=== PATIENT | female | born 1990 | race Two or more races ===

== ENCOUNTER 2024-09-04 10:52 | Outpatient (CLI) | payer OTHER | END 2024-09-04 11:00 | disposition home or self-care (01) | LOC: PRENATAL 10:52 | DX: O44.00 Complete placenta previa NOS or without hemorrhage, unspecified trimester (principal); O28.1 Abnormal biochemical finding on antenatal screening of mother; O09.519 Supervision of elderly primigravida, unspecified trimester; O34.10 Maternal care for benign tumor of corpus uteri, unspecified trimester; Z3A.22 22 weeks gestation of pregnancy ==

== ENCOUNTER 2024-10-30 10:04 | Outpatient (CLI) | payer OTHER | END 2024-10-30 10:05 | disposition home or self-care (01) | LOC: PRENATAL 10:04 | PROVIDERS: ATTEND Obstetrics & Gynecology Maternal & Fetal Medicine | DX: O26.849 Uterine size-date discrepancy, unspecified trimester (principal); O28.1 Abnormal biochemical finding on antenatal screening of mother; O09.519 Supervision of elderly primigravida, unspecified trimester; O34.10 Maternal care for benign tumor of corpus uteri, unspecified trimester; Z3A.31 31 weeks gestation of pregnancy ==

== ENCOUNTER → 2024-12-01 10:41 | Outpatient (CLI) | payer OTHER | END | disposition home or self-care (01) | LOC: PRENATAL 10:41 | PROVIDERS: ATTEND Obstetrics & Gynecology Maternal & Fetal Medicine | DX: O26.849 Uterine size-date discrepancy, unspecified trimester (principal); O36.8130 Decreased fetal movements, third trimester, not applicable or unspecified; O28.1 Abnormal biochemical finding on antenatal screening of mother; O09.519 Supervision of elderly primigravida, unspecified trimester; O34.10 Maternal care for benign tumor of corpus uteri, unspecified trimester; O28.3 Abnormal ultrasonic finding on antenatal screening of mother; Z3A.37 37 weeks gestation of pregnancy ==

== ENCOUNTER → 2024-12-23 07:40 | Outpatient (CLI) | payer OTHER | END | disposition home or self-care (01) | LOC: PRENATAL 07:40 | PROVIDERS: ATTEND Obstetrics & Gynecology Maternal & Fetal Medicine | DX: O26.843 Uterine size-date discrepancy, third trimester (principal); O36.8130 Decreased fetal movements, third trimester, not applicable or unspecified; O28.1 Abnormal biochemical finding on antenatal screening of mother; O09.513 Supervision of elderly primigravida, third trimester; O34.13 Maternal care for benign tumor of corpus uteri, third trimester; O28.3 Abnormal ultrasonic finding on antenatal screening of mother; Z3A.39 39 weeks gestation of pregnancy ==